=== PATIENT | male | born 1960 | race Caucasian/White ===

== ENCOUNTER 2024-06-13 17:52 | Emergency (ER) | payer MEDICAID ==
[2024-06-13 18:05] VITALS: TEMP 99
--- NOTE | 2024-06-13 18:15 | ERPHSYRPT ---
- History of Present Illness Time Seen by Provider: 06/13/24 17:55 Source: patient, EMS Exam Limitations: clinical condition Patient Subjective Stated Complaint: EMS states "His said he was stung by a bee and she gave him roughly 100 mL of liquid benadryl with a conentration of 12.5 mg/5 mL for a total of 250 mg benadryl at 1700. PT is now alert and slightly confused, speech is slurred." Triage Nursing Assessment: Pt presented alert and oriented X 3, skin wpd. Pt able to speak in full senetences. Pt speech is slurred. Pt warm to touch. smells strongly of urine. Physician History: pt got stung by several bees/wasps, but has never been allergic and had no allergic type reaction but a relative gave him 250 MG benadryl 1 hour ago and then he got woozy - she was concerned that he needed this med because she is allergic herself. He is a little jittery - no hives or rash. Not SObreath. No CP. EKG has NS T s . Neuro without deficits. Airway clear chest clear without wheezes or stridor, swallowing OK in ER. Poison control advised 4 hour obs and re-assess and check EKG for QTs, . Discussed risks/benefits with pt and family of additional testing and Tx including CPK, CMP, CBC, EKG, Trop, UA and they wish to proceed so these are ordered. Discussed possible need for ativan, but they chose wait and see and symptoms gradually resolved. Results discussed with pt and family. Timing/Duration: today Severity: mild Associated Symptoms: other (feeling jittery) Allergies/Adverse Reactions: No Known Drug Allergies Allergy (Verified 06/13/24 18:05) Home Medications: Aspirin EC 81 mg [Ecotrin 81 mg] 81 mg PO DAILY 06/13/24 [History] Hx Tetanus, Diphtheria Vaccination/Date Given: Yes Hx Influenza Vaccination/Date Given: Yes Hx Pneumococcal Vaccination/Date Given: No Immunizations Up to Date: No Travel Risk - International Travel Have you traveled outside of the country in past 3 weeks: No - Emerging Infectious Disease Are you exhibiting symptoms associated with any current EIDs: No - Review of Systems Constitutional: No Fever, No Chills Eyes: No Symptoms Ears, Nose, & Throat: No Symptoms Respiratory: No Cough, No Dyspnea Cardiac: No Chest Pain, No Edema, No Syncope Abdominal/Gastrointestinal: No Abdominal Pain, No Nausea, No Vomiting, No Diarrhea Genitourinary Symptoms: No Dysuria Musculoskeletal: No Back Pain, No Neck Pain Skin: No Rash Neurological: Other (feeling jittery minimal slurred speech initially), No Dizziness, No Focal Weakness, No Sensory Changes Psychological: No Symptoms Endocrine: No Symptoms Hematologic/Lymphatic: No Symptoms Immunological/Allergic: No Symptoms All Other Systems: Reviewed and Negative - Past Medical History Pertinent Past Medical History: Yes Cardiac History: Myocardial Infarction ([place]) Musculoskeletal History: No Pertinent History GI Medical History: No Pertinent History History: No Pertinent History Psycho-Social History: No Pertinent History Male Reproductive Disorders: No Pertinent History - Past Surgical History Past Surgical History: Yes Cardiac: Cardiac Catheterization, Cardiac Stent - Social History Smoking Status: Never smoker Exposure to second hand smoke: Yes Drug Use: none - Social Determinants of Health Will the patient participate in the screening: Declined to provide - Nursing Vital Signs Nursing Vital Signs: Initial Vital Signs Temperature 99.0 F 06/13/24 17:54 Pulse Rate 96 H 06/13/24 17:54 Respiratory Rate 18 06/13/24 17:54 Blood Pressure 158/93 06/13/24 17:54 O2 Sat by Pulse Oximetry 93 L 06/13/24 17:54 Pain Scale Pain Intensity 0 - Physical Exam General Appearance: no apparent distress, alert Eye Exam: PERRL/EOMI, eyes nml inspection Ears, Nose, Throat Exam: normal ENT inspection, TMs normal, pharynx normal, moist mucous membranes Neck Exam: normal inspection, non-tender, supple, full range of motion Respiratory Exam: normal breath sounds, lungs clear, No respiratory distress Cardiovascular Exam: regular rate/rhythm, normal heart sounds, normal peripheral pulses Gastrointestinal/Abdomen Exam: soft, normal bowel sounds, No tenderness, No mass Rectal Exam: deferred Back Exam: normal inspection, normal range of motion, No CVA tenderness, No vertebral tenderness Extremity Exam: normal inspection, normal range of motion, pelvis stable Neurologic Exam: alert, oriented x 3, cooperative, normal mood/affect, nml cerebellar function, nml station & gait, sensation nml, other (mild tremors - no focal deficits. ), No motor deficits Skin Exam: normal color, warm, dry, No rash Lymphatic Exam: No adenopathy SpO2 Interpretation: normal (normal fot this pt hx mild resp but no symptoms) SpO2: 93 O2 Delivery: Room Air - Course Nursing assessment & vital signs reviewed: Yes EKG Interpreted by Me: Sinus Rhythm, NORMAL AXIS, NORMAL INTERVALS, NORMAL QRS, Non-specific ST Changes Ordered Tests: Active Orders 24 hr Category Date Time Status EKG-ER Only STAT Care 06/13/24 18:19 Active IV Insertion STAT Care 06/13/24 18:19 Active CBC W DIFF Stat Lab 06/13/24 18:47 Completed CK-Creatinine Phosphokinase Stat Lab 06/13/24 18:47 Completed CMP Stat Lab 06/13/24 18:47 Completed Lactic Acid Stat Lab 06/13/24 18:19 Completed TROPONIN Q4H Lab 06/13/24 18:47 Completed TROPONIN Q4H Lab 06/13/24 22:30 Ordered TROPONIN Q4H Lab 06/14/24 02:30 Ordered UA W/RFX UR CULTURE Stat Lab 06/13/24 18:26 Completed Medication Summary Generic Name Dose Route Start Last Admin Trade Name Troyq PRN Reason Stop Dose Admin Sodium Chloride 1,000 mls @ 100 mls/hr 06/13/24 18:30 06/13/24 18:30 Sodium Chloride 0.9% 1000 Ml IV 07/13/24 18:29 100 mls/hr .Q10H RHEA Administration Lab/Rad Data: Laboratory Result Diagrams 06/13/24 18:47 06/13/24 18:47 Laboratory Results 06/13/24 06/13/24 06/13/24 Range/Units 18:47 18:47 18:47 WBC 11.2 H (4.23-9.07) x10^3/uL RBC 4.22 L (4.63-6.08) x10^6/uL Hgb 13.1 L (13.7-17.5) g/dL Hct 40.0 L (40.1-51.0) % MCV 94.8 H (79.0-92.2) fL MCH 31.0 (25.7-32.2) pg MCHC 32.8 (32.3-36.5) g/dL RDW 13.2 (11.6-14.4) % Plt Count 188 (163-337) x10^3/uL MPV 10.7 (9.4-12.4) fL Gran % 66.5 (34.0-67.9) % Immature Gran % (Auto) 1.1 H (0.001-0.429) % Nucleat RBC Rel Count 0.0 (0.00-0.2) % Eos # (Auto) 0.04 (0.04-0.54) x10^3/uL Immature Gran # (Auto) 0.12 H (0.001-0.031) x10^3u/L Absolute Lymphs (auto) 2.70 (1.32-3.57) x10^3/uL Absolute Monos (auto) 0.85 H (0.30-0.82) x10^3/uL Absolute Nucleated RBC 0.00 (0.00-0.012) x10^3u/L Lymphocytes % 24.2 (21.8-53.1) % Monocytes % 7.6 (5.3-12.2) % Eosinophils % 0.4 L (0.8-7.0) % Basophils % 0.2 (0.2-1.2) % Absolute Granulocytes 7.42 H (1.78-5.38) x10^3/uL Basophils # 0.02 (0.01-0.08) x10^3/uL Sodium 140 (135-145) mmol/L Potassium 4.2 (3.5-5.1) mmol/L Chloride 107 (98-107) mmol/L Carbon Dioxide 26 (22-30) mmol/L Anion Gap 10.4 (5-15) MEQ/L BUN 20 (9-20) mg/dL Creatinine 1.14 (0.66-1.25) mg/dL Estimated GFR 70.9 ML/MIN Glucose 93 (74-106) mg/dL Lactic Acid (0.4-2.0) Calcium 8.9 (8.4-10.2) mg/dL Total Bilirubin 0.40 (0.2-1.3) mg/dL AST 28 (17-59) U/L ALT 45 (0-50) U/L Alkaline Phosphatase 68 (38-126) U/L Creatine Kinase 108 (55-170) U/L Troponin I < 0.012 (0.000-0.033) ng/mL Serum Total Protein 7.0 (6.3-8.2) g/dL Albumin 4.0 (3.5-5.0) g/dL Urine Color (Yellow) Urine Appearance (Clear) Urine pH (4.6-8.0) Ur Specific [place] (1.005-1.030) Urine Protein (Negative) Urine Glucose (UA) (Negative) mg/dL Urine Ketones (Negative) Urine Blood (Negative) Urine Nitrite (Negative) Urine Bilirubin (Negative) Urine Urobilinogen (0.2) mg/dL Ur Leukocyte Esterase (Negative) U Hyaline Cast (Auto) (0-2) /LPF Urine Microscopic RBC (0-5) /HPF Urine Microscopic WBC (0-5) /HPF Ur Epithelial Cells (None Seen) /HPF Urine Bacteria (None Seen) /HPF Urine Culture Reflexed (NO) 06/13/24 06/13/24 Range/Units 18:26 18:19 WBC (4.23-9.07) x10^3/uL RBC (4.63-6.08) x10^6/uL Hgb (13.7-17.5) g/dL Hct (40.1-51.0) % MCV (79.0-92.2) fL MCH (25.7-32.2) pg MCHC (32.3-36.5) g/dL RDW (11.6-14.4) % Plt Count (163-337) x10^3/uL MPV (9.4-12.4) fL Gran % (34.0-67.9) % Immature Gran % (Auto) (0.001-0.429) % Nucleat RBC Rel Count (0.00-0.2) % Eos # (Auto) (0.04-0.54) x10^3/uL Immature Gran # (Auto) (0.001-0.031) x10^3u/L Absolute Lymphs (auto) (1.32-3.57) x10^3/uL Absolute Monos (auto) (0.30-0.82) x10^3/uL Absolute Nucleated RBC (0.00-0.012) x10^3u/L Lymphocytes % (21.8-53.1) % Monocytes % (5.3-12.2) % Eosinophils % (0.8-7.0) % Basophils % (0.2-1.2) % Absolute Granulocytes (1.78-5.38) x10^3/uL Basophils # (0.01-0.08) x10^3/uL Sodium (135-145) mmol/L Potassium (3.5-5.1) mmol/L Chloride (98-107) mmol/L Carbon Dioxide (22-30) mmol/L Anion Gap (5-15) MEQ/L BUN (9-20) mg/dL Creatinine (0.66-1.25) mg/dL Estimated GFR ML/MIN Glucose (74-106) mg/dL Lactic Acid 1.1 (0.4-2.0) Calcium (8.4-10.2) mg/dL Total Bilirubin (0.2-1.3) mg/dL AST (17-59) U/L ALT (0-50) U/L Alkaline Phosphatase (38-126) U/L Creatine Kinase (55-170) U/L Troponin I (0.000-0.033) ng/mL Serum Total Protein (6.3-8.2) g/dL Albumin (3.5-5.0) g/dL Urine Color Yellow (Yellow) Urine Appearance Clear (Clear) Urine pH 6.0 (4.6-8.0) Ur Specific [place] 1.020 (1.005-1.030) Urine Protein Negative (Negative) Urine Glucose (UA) Negative (Negative) mg/dL Urine Ketones Negative (Negative) Urine Blood Negative (Negative) Urine Nitrite Negative (Negative) Urine Bilirubin Negative (Negative) Urine Urobilinogen 0.2 (0.2) mg/dL Ur Leukocyte Esterase Negative (Negative) U Hyaline Cast (Auto) NONE SEEN (0-2) /LPF Urine Microscopic RBC 0-2 (0-5) /HPF Urine Microscopic WBC 0-2 (0-5) /HPF Ur Epithelial Cells None Seen (None Seen) /HPF Urine Bacteria None Seen (None Seen) /HPF Urine Culture Reflexed NO (NO) - Progress Progress: improved, re-examined Progress Note: 06/13/24 20:29 pt is improving and without symptoms at this time. awaiting labs. 06/13/24 21:53 repeat EKG is without change and speech is all normal now. The Poison control state that he should be fine for release to home from the standpoint of this dosage of benadryl and there is no objective evidence for any other ingestions or medical conditions at this time. . 06/13/24 21:58 No skin rashes, chest clear without wheezes. No CP or any other symptoms No SObreath. swallowing OK in ER and yash fluids. Counseled pt/family regarding: lab results, diagnosis, need for follow-up Medical Desision Making - Independent Historian Additional History obtained from: Family, EMS - Discussion of managment Reviewed:: Test results, Need for additional workup Agreed on:: Treatment plan, need for follow-up - Diagnostic Testing Diagnostic test were ordered, analyzed, and reviewed by me: Yes - Risk of complications The pt has a mod risk of morbidity or mortality based on: Need for prescription drug management The pt has a high risk of morbidity or mortality based on: Decision regarding hospitilization or escalation of hosp level of care - Departure Departure Disposition: Home Clinical Impression: accidental overmedication Condition: Good Critical Care Time: No Referrals: SAUD AMES [Primary Care Provider] - Follow up/PCP as directed Instructions: Accidental Overdose (DC) Additional Instructions: Follow-up with your DrDelonte for routine care, including elevated blood pressure . return meantime if any further symptoms.
[2024-06-13] MEDS ORDERED: Sodium Chloride 0.9% 1000 ML 1,000 ML ONE (18:28)
[2024-06-13] MEDS: Sodium Chloride 0.9% 1000 ML 1,000 ML IV SCH (18:30)
[2024-06-13 18:50] LABS: Absolute Neutrophil Ct (ANC) 7.42 x10^3/uL (1.78-5.38); BASOPHIL % 0.2 % (0.2-1.2); Basophil (Absolute #) 0.02 x10^3/uL (0.01-0.08); Eosinophil % 0.4 % (0.8-7.0); Eosinophil (Absolute #) 0.04 x10^3/uL (0.04-0.54); Hemoglobin 13.1 g/dL (13.7-17.5); IMMATURE GRAN # 0.12 x10^3u/L (0.001-0.031); IMMATURE GRAN % 1.1 % (0.001-0.429); Lymphocytes % 24.2 % (21.8-53.1); Mean Cell Volume 94.8 fL (79.0-92.2); Mean Corpuscular Hgb Concent. 32.8 g/dL (32.3-36.5); Mean Platelet Volume 10.7 fL (9.4-12.4); Monocyte (Absolute #) 0.85 x10^3/uL (0.30-0.82); Monocytes % 7.6 % (5.3-12.2); Neutrophil % 66.5 % (34.0-67.9); Platelet Count 188 x10^3/uL (163-337); Red Blood Count 4.22 x10^6/uL (4.63-6.08); Red Cell Distribution Width 13.2 % (11.6-14.4); White Blood Count 11.2 x10^3/uL (4.23-9.07)
[2024-06-13 18:57] LABS: Appearance Clear (Clear); Bacteria None Seen /HPF (None Seen); Bilirubin Negative (Negative); Blood Negative (Negative); Epithelial Cells None Seen /HPF (None Seen); Glucose, Urine Negative (Negative); Hyaline Casts NONE SEEN /LPF (0-2); Ketones Negative (Negative); Leukocyte Esterase Negative (Negative); Nitrite Negative (Negative); Protein,Urine Dip Negative (Negative); RBC 0-2 /HPF (0-5); Urobilinogen 0.2 mg/dL (0.2); WBC 0-2 /HPF (0-5)
[2024-06-13 19:10] LABS: ANION GAP 10.4 MEQ/L (5-15); BILIRUBIN,TOTAL 0.4 mg/dL (0.2-1.3); Calcium 8.9 mg/dL (8.4-10.2); Creatinine 1 1.14 mg/dL (0.66-1.25); EST GLOMERULAR FILTRATION RATE 70.9 ML/MIN; Potassium 4.2 mmol/L (3.5-5.1)
[2024-06-13 19:23] LABS: ADD URINE CULTURE? NO (NO)
[2024-06-13 22:03] VITALS: BP 153/88; PULSE 80; RESP 22; O2SAT 94
== END 2024-06-13 22:08 | disposition home or self-care (01) ==
LOC: ED 17:52
DX: T45.0X1A Poisoning by antiallergic and antiemetic drugs, accidental (unintentional), initial encounter (principal); G25.1 Drug-induced tremor
CPT/HCPCS: 36000; 36415; 80053; 81001; 82550; 83605; 84484; 85025; 93005; 99284